=== PATIENT | female | born 1980 | race Two or more races ===

== ENCOUNTER 2019-02-24 15:04 | Emergency (ER) | payer OTHER ==
[~2019-02-24] VITALS: Ht 152.4 cm; Wt 55.8 kg
[2019-02-24] MEDS ORDERED: PEPCID AC20 MG PO (22:21)
[2019-02-24] MEDS ORDERED: DICY20TA PO (22:21)
[2019-02-24] MEDS ORDERED: CIPRO500 MG PO (22:21)
== END 2019-02-24 22:32 | disposition home or self-care (01) ==
LOC: ER
DX: K52.89 Other specified noninfective gastroenteritis and colitis (principal)

== ENCOUNTER 2020-06-15 15:39 | Outpatient (CLI) | payer OTHER ==
[~2020-06-15 15:39] MED LIST: CIPRO500 MG PO; DICY20TA PO; PEPCID AC20 MG PO
== END 2020-06-15 16:08 | disposition home or self-care (01) ==
LOC: OFIC 805 15:39
PROVIDERS: ATTEND Otolaryngology Otology & Neurotology
DX: R42 Dizziness and giddiness (principal)